=== PATIENT | female | born 1975 | race Two or more races ===

== ENCOUNTER 2018-08-03 17:20 | Emergency (ER) | payer MEDICAID ==
[~2018-08-03] VITALS: Ht 160 cm; Wt 108.0 kg
[2018-08-03 17:30] VITALS: BP 127/77
== END 2018-08-03 18:04 | disposition home or self-care (01) ==
LOC: ER 17:29
DX: H66.92 Otitis media, unspecified, left ear (principal); Z87.440 Personal history of urinary (tract) infections